=== PATIENT | male | born 1950 | race Caucasian/White ===

== ENCOUNTER → 2022-12-10 | Outpatient (CLI) | payer MEDICARE ==
[~2022-12-10] MED LIST: ASPI-1443 PO; BACL20TA PO; PRAV20TA4 PO; PRIM250T24 PO; PROP120C2 PO
[2022-12-10 16:29] LABS: CHOLESTEROL 143 mg/dL (<200); HDL CHOLESTEROL 51 mg/dL (29-71); LDL DIRECT 80 mg/dL (0-99); TRIGLYCERIDES 77 mg/dL (30-200)
== END | disposition home or self-care (01) ==
LOC: LAB 11:59
PROVIDERS: ATTEND Internal Medicine Cardiovascular Disease
DX: I35.0 Nonrheumatic aortic (valve) stenosis (principal); E78.5 Hyperlipidemia, unspecified
CPT/HCPCS: 36415; 80061

== ENCOUNTER → 2022-12-19 | Outpatient (CLI) | payer MEDICARE | END | disposition home or self-care (01) | LOC: SHCH 14:25 | PROVIDERS: ATTEND Internal Medicine Cardiovascular Disease | DX: I51.7 Cardiomegaly (principal); I51.89 Other ill-defined heart diseases; E78.5 Hyperlipidemia, unspecified; Z95.2 Presence of prosthetic heart valve; Z95.1 Presence of aortocoronary bypass graft | CPT/HCPCS: 93306 ==

== ENCOUNTER → 2023-01-25 | Outpatient (CLI) | payer MEDICARE ==
[2023-01-25 15:58] LABS: CHOLESTEROL 137 mg/dL (<200); HDL CHOLESTEROL 51 mg/dL (29-71); LDL DIRECT 73 mg/dL (0-99); TRIGLYCERIDES 75 mg/dL (30-200)
== END | disposition home or self-care (01) ==
LOC: LAB 09:34
PROVIDERS: ATTEND Internal Medicine Cardiovascular Disease
DX: I35.0 Nonrheumatic aortic (valve) stenosis (principal); E78.5 Hyperlipidemia, unspecified
CPT/HCPCS: 36415; 80061

== ENCOUNTER → 2023-10-30 | Outpatient (CLI) | payer MEDICARE ==
[2023-10-30 12:40] LABS: CHOLESTEROL 129 mg/dL (<200); HDL CHOLESTEROL 60 mg/dL (29-71); LDL DIRECT 59 mg/dL (0-99); TRIGLYCERIDES 56 mg/dL (30-200)
== END | disposition home or self-care (01) ==
LOC: LAB 08:36
PROVIDERS: ATTEND Internal Medicine Cardiovascular Disease
DX: E78.5 Hyperlipidemia, unspecified (principal)
CPT/HCPCS: 36415; 80061

== ENCOUNTER → 2024-11-25 | Outpatient (CLI) | payer MEDICARE ==
[2024-11-25 12:53] LABS: CHOLESTEROL 126 mg/dL (<200); HDL CHOLESTEROL 52 mg/dL (29-71); LDL DIRECT 65 mg/dL (0-99); TRIGLYCERIDES 84 mg/dL (30-200)
== END | disposition home or self-care (01) ==
LOC: LAB 11-18 14:13
PROVIDERS: ATTEND Internal Medicine Cardiovascular Disease
DX: E78.5 Hyperlipidemia, unspecified (principal)
CPT/HCPCS: 36415; 80061